=== PATIENT | male | born 1975 | race Two or more races ===

== ENCOUNTER 2020-03-26 06:25 | Day surgery (SDC) | payer OTHER | END 2020-03-26 14:00 | disposition home or self-care (01) | LOC: CIR.AMB 06:25 | PROVIDERS: ATTEND Orthopaedic Surgery Hand Surgery | DX: G56.02 Carpal tunnel syndrome, left upper limb (principal); Z20.828 Contact with and (suspected) exposure to other viral communicable diseases ==